=== PATIENT | female | born 1950 | race Caucasian/White ===

== ENCOUNTER 2019-05-30 11:41 | Inpatient (IN) | payer MEDICARE, BC ==
[~2019-05-30] VITALS: Ht 162.6 cm; Wt 79.4 kg
--- NOTE | 2019-05-30 11:52 | NUR ---
PT BIB SELF C/O SEND FROM PMD OFFICE FOR INFECTED R GREATER TOE, PT IS AAOX3, NOT IN RESPIRATORY DISTRESS, HOOKED TO MONITOR, KEPT RESTED AND COMFORTABLE, WILL CONTINUE TO MONITOR.
--- NOTE | 2019-05-30 12:12 | NUR ---
SEEN AND EXAMINED BY .
--- NOTE | 2019-05-30 12:22 | NUR ---
URINAL GIVEN UNABLE TO PROVIDE URINE SPECIMEN.
--- NOTE | 2019-05-30 12:26 | NUR ---
IV LINE ESTABLISHED, BLOOD DRAWNED AND SENT TO LAB.
[2019-05-30] MEDS ORDERED: IV NS 0.9% 1,000 ML BAG IV ONE (12:30)
[2019-05-30] MEDS ORDERED: PIPERACILLIN /TAZOBACTAM 3.375 G in IV D5W 50 ML IV ONE (12:30)
[2019-05-30] MEDS ORDERED: VANCOMYCIN 1 GM in IV D5W 250 ML IV ONE (12:30)
[2019-05-30 12:34] LABS: BASOPHILS # (AUTO) 0.2 /CMM (0.0-0.2); BASOPHILS % (AUTO) 1.3 % (0.0-2.0); EOSINOPHILS % (AUTO) 0.6 % (0.0-6.0); HEMATOCRIT 40 % (33-45); HEMOGLOBIN 13.5 g/dL (11.5-14.8); LYMPHOCYTES # (AUTO) 1.8 /CMM (0.8-4.8); LYMPHOCYTES % (AUTO) 15.5 % (20.0-44.0); MEAN CORPUSCULAR HGB CONC 34 g/dl (31.0-36.0); MEAN CORPUSCULAR VOLUME 88 fL (82-100); MONOCYTES # (AUTO) 0.9 /CMM (0.1-1.30); MONOCYTES % (AUTO) 7.4 % (2.0-12.0); NEUTROPHILS # (AUTO) 8.8 /CMM (1.8-8.9); NEUTROPHILS % (AUTO) 75.2 % (43.0-81.0); PLATELET COUNT (AUTO) 316 /CMM (150-450); RED BLOOD CELL COUNT(AUTO) 4.52 MIL/uL (4.0-5.2); WHITE BLOOD COUNT (AUTO) 11.7 K/uL (4.3-11.0)
--- NOTE | 2019-05-30 12:45 | NUR ---
ASSOCIATE PROPERTY MANAGER AT BEDSIDE FOR XRAY.
[2019-05-30 12:47] LABS: ALANINE AMINOTRANSFERASE 17 U/L (12-78); ALBUMIN 3.1 g/dL (3.4-5.0); ALKALINE PHOSPHATASE 103 U/L (46-116); ASPARTATE AMINOTRANSFERASE 11 U/L (15-37); BILIRUBIN,DIRECT 0.1 mg/dL (0.0-0.2); BILIRUBIN,TOTAL 0.5 mg/dL (0.2-1.0); CALCIUM, SERUM 9.4 mg/dL (8.5-10.1); CARBON DIOXIDE 26 mmol/L (21-32); CHLORIDE 96 mmol/L (98-107); CREATININE 1.5 mg/dL (0.6-1.3); POTASSIUM 4.6 mmol/L (3.5-5.1); SODIUM SERUM 132 mmol/L (136-145); TOTAL PROTEIN, SERUM 8.2 g/dL (6.4-8.2); UREA NITROGEN, BLOOD 25 mg/dL (7-18)
[2019-05-30 12:48] LABS: GLUCOSE 527 mg/dL (74-106)
[2019-05-30] MEDS ORDERED: EMPA10TA PO (12:51)
[2019-05-30] MEDS ORDERED: SITA1TAB6 PO (12:51)
[2019-05-30] MEDS ORDERED: CARV12.5 PO (12:51)
[2019-05-30] MEDS ORDERED: ATOR40TA PO (12:51)
--- NOTE | 2019-05-30 13:35 | NUR ---
URINE SPECIMEN COLLECTED AND SENT TO LAB.
[2019-05-30 13:43] LABS: APPEARANCE,URINE CLEAR (CLEAR); BILIRUBIN,URINE NEGATIVE (NEGATIVE); BLOOD, URINE TRACE Ery/uL (NEGATIVE); COLOR,URINE YELLOW (YELLOW); KETONES,URINE NEGATIVE (NEGATIVE); LEUKOCYTE ESTERASE ,URINE NEGATIVE (NEGATIVE); NITRITE, URINE NEGATIVE (NEGATIVE); PROTEIN,URINE 2+ mg/dl (NEGATIVE); UGLUCOSE 3+ mg/dL (NEGATIVE); UROBILINOGEN,URINE 0.2 EU/dL (0.2)
[2019-05-30 13:57] LABS: BACTERIA,URINE Few /HPF (None Seen); SQUAMOUS EPITHELIAL CELL,UR Rare /HPF (None Seen)
[2019-05-30 13:58] LABS: WBC,URINE 0-2 /HPF (0-3)
--- NOTE | 2019-05-30 13:59 | NUR ---
REPORT GIVEN TO ELISA PENA FOR [place].
[2019-05-30] MEDS ORDERED: ACETAMINOPHEN 325 MG TABLET PO PRN (15:00)
[2019-05-30] MEDS ORDERED: MAG HYDROX/AL HYDROX/SIMETH 30 ML UDC PO PRN (15:00)
[2019-05-30] MEDS ORDERED: METFORMIN 850 MG TABLET PO SCH (15:00)
[2019-05-30] MEDS ORDERED: Z GUARD REMEDY 2 OZ OINT TP PRN (15:00)
[2019-05-30] MEDS ORDERED: DEXTROSE 50%-WATER 50 ML DISP.SYRIN IV PRN (15:00)
[2019-05-30] MEDS ORDERED: HYDROCODONE/APAP 5/325MG 1 EACH TABLET PO PRN (15:00)
[2019-05-30] MEDS ORDERED: ZOLPIDEM TARTRATE 5 MG TABLET PO PRN (15:00)
[2019-05-30] MEDS ORDERED: MAGNESIUM HYDROXIDE 30 ML UDC PO PRN (15:00)
[2019-05-30] MEDS ORDERED: ONDANSETRON HCL/PF 4 MG/2 ML VIAL IVP PRN (15:00)
--- NOTE | 2019-05-30 15:10 | NUR ---
RN MS NOTES RECEIVED PT FROM E.R. STAFF VIA JOAN, PT IS ALERT AND ORIENTED, ASSISTED TO BED, MADE COMFORTABLE, ROOM SET UP ORIENTATION PROVIDED, VERBALIZED UNDERSTANDING, NO COMPLAINT OF PAIN, RESPIRATIONS NORMAL, LUNG SOUNDS CLEAR, ABLE TO AMBULATE WITH ASSISTANCE, NEEDS ATTENDED.
[2019-05-30 16:00] VITALS: BP 161/84
[2019-05-30] MEDS: CARVEDILOL 12.5 MG TABLET PO SCH ×2 (17:00→17:18)
[2019-05-30] MEDS: METFORMIN 500 MG TABLET PO SCH (17:17)
[2019-05-30] MEDS: ENOXAPARIN SODIUM 40 MG/0.4 ML DISP.SYRIN SQ SCH (17:30)
[2019-05-30] MEDS: IV NS 0.9% 1,000 ML IV PRN (18:08)
[2019-05-30] MEDS: PIPERACILLIN /TAZOBACTAM 4.5 G in IV D5W 50 ML IV SCH ×2 (18:09→23:51)
[2019-05-30] MEDS: INSULIN REGULAR, HUMAN 100 UNIT/ML 3 ML VIAL SQ PRN (18:10)
[2019-05-30] MEDS: BLOOD SUGAR DIAGNOSTIC 1 EACH STRIP VI SCH ×2 (18:11→21:31)
--- NOTE | 2019-05-30 18:41 | NUR ---
RN MS NOTES PT IN BED, AWAKE, ALERT AND ORIENTED, WATCHING TV AND EATING DINNER, PM MEDS GIVEN ORDERED, PLAN OF CARE DISCUSSED WITH PT, VERBALIZED UNDERSTANDING, ALL NEEDS ATTENDED.
--- NOTE | 2019-05-30 19:20 | NUR ---
MS/RN NOTES RECEIVED PT. LYING IN BED. PT. IS AWAKE, ALERT AND ORIENTED X4. BREATHING EVEN AND UNLABORED ON ROOM AIR. NO SOB, RESPIRATORY DISTRESS OR COMPLAINTS OF PAIN NOTED AT THIS TIME. PT. 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 PT. WITH RIGHT AC 18 GAUGE PERIPHERAL IV PRESENT, PATENT AND INTACT ADMINISTERING TO PT. NS @ 75 ML/HR. EDUCATED PT. ON CALLING FOR ASSISTANCE BEFORE AMBULATING, PT. VERBALIZED UNDERSTANDING. BED LOCKED AND IN LOWEST POSITION, SIDE RAILS UP X3, BED ALARM ON, CALL LIGHT WITHIN REACH, WILL CONTINUE TO MONITOR.
[2019-05-30 19:37] VITALS: BP 129/60
[2019-05-30 20:00] VITALS: BP 129/60
[2019-05-30] MEDS: ATORVASTATIN 40 MG TABLET PO SCH (21:31)
[2019-05-30] MEDS: *INSULIN REGULAR(HUMULIN R)HUM 100 UNIT/ML VIAL SQ PRN (21:32)
[2019-05-31] MEDS: PIPERACILLIN /TAZOBACTAM 4.5 G in IV D5W 50 ML IV SCH ×3 (06:17→17:14)
--- NOTE | 2019-05-31 06:30 | NUR ---
MS/RN NOTES PT. IS LYING IN BED RESTING. BREATHING EVEN AND UNLABORED ON ROOM AIR. NO SOB, RESPIRATORY DISTRESS OR COMPLAINTS OF PAIN NOTED AT THIS TIME. PT. WITH LEFT AC 20 GAUGE PERIPHERAL IV PRESENT, PATENT AND INTACT ADMINISTERING TO PT. NS @ 75 ML/HR. SAFETY PRECAUTIONS IMPLEMENTED AND IN PLACE. ALL PT. NEEDS MET. BED LOCKED AND IN LOWEST POSITION, SIDE RAILS UP X3, BED ALARM ON, CALL LIGHT WITHIN REACH, WILL ENDORSE TO DAYSHIFT NURSE FOR CONTINUITY OF CARE.
[2019-05-31 06:41] LABS: BASOPHILS # (AUTO) 0.1 /CMM (0.0-0.2); BASOPHILS % (AUTO) 0.5 % (0.0-2.0); EOSINOPHILS % (AUTO) 1.9 % (0.0-6.0); HEMATOCRIT 33 % (33-45); HEMOGLOBIN 11.5 g/dL (11.5-14.8); LYMPHOCYTES # (AUTO) 2.4 /CMM (0.8-4.8); LYMPHOCYTES % (AUTO) 22.5 % (20.0-44.0); MEAN CORPUSCULAR HGB CONC 35 g/dl (31.0-36.0); MEAN CORPUSCULAR VOLUME 86 fL (82-100); MONOCYTES % (AUTO) 9.5 % (2.0-12.0); NEUTROPHILS # (AUTO) 7.1 /CMM (1.8-8.9); NEUTROPHILS % (AUTO) 65.6 % (43.0-81.0); PLATELET COUNT (AUTO) 285 /CMM (150-450); RED BLOOD CELL COUNT(AUTO) 3.86 MIL/uL (4.0-5.2); WHITE BLOOD COUNT (AUTO) 10.8 K/uL (4.3-11.0)
[2019-05-31 06:48] LABS: CALCIUM, SERUM 8.9 mg/dL (8.5-10.1); CREATININE 1.5 mg/dL (0.6-1.3); MAGNESIUM 1.9 mg/dL (1.8-2.4); PHOSPHORUS 3.8 mg/dL (2.5-4.9); POTASSIUM 4.4 mmol/L (3.5-5.1)
[2019-05-31] MEDS: BLOOD SUGAR DIAGNOSTIC 1 EACH STRIP VI SCH ×4 (06:50→22:18)
[2019-05-31] MEDS: INSULIN REGULAR, HUMAN 100 UNIT/ML 3 ML VIAL SQ PRN ×3 (06:53→17:01)
[2019-05-31 07:03] LABS: THYROID STIMULATING HORMONE 0.989 uIU/mL (0.358-3.74)
--- NOTE | 2019-05-31 07:11 | NUR ---
MS RN OPENING NOTES RECEIVED PT AWAKE IN BED IN NO ACUTE SIGNS OF DISTRESS. A/O X4. ABLE TO MAKE NEEDS KNOWN, DENIES PAIN OR ANY DISCOMFORTS AT THIS TIME. ON ROOM AIR, BREATHING EVEN AND UNLABORED PT. 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 IV ACCESS ON LAC G #20 PATENT AND INTACT, IVF OF NS @ 75 ML/HR INFUSING, NO S/S OF INFILTRATIONS NOTED. ADVISED PT. TO CALL FOR ASSISTANCE BEFORE AMBULATING, PT. VERBALIZED UNDERSTANDING. BED LOCKED AND IN LOWEST POSITION, SIDE RAILS UP X3, BED ALARM ON, CALL LIGHT WITHIN REACH. WILL CONTINUE TO MONITOR.
[2019-05-31 08:00] VITALS: BP 128/68
[2019-05-31] MEDS: METFORMIN 500 MG TABLET PO SCH ×2 (08:05→16:36)
[2019-05-31] MEDS: CARVEDILOL 12.5 MG TABLET PO SCH ×2 (08:05→16:35)
--- NOTE | 2019-05-31 09:01 | NUR ---
WOUND CARE CONSULT: PT PRESENTS WITH LEFT GREAT TOE CRUSTED WOUND WITH ODOR, SWELLING AND REDNESS TO TOE, PRESENT ON ADMISSION. NO DRAINAGE NOTED. PT IS AMBULATORY AND CONTINENT. DR SIMPSON AWARE OF DPM CONSULT REQUEST. WILL SEE PRN. FRAZIER IN AGREEMENT WITH PLAN OF CARE.
[2019-05-31] MEDS ORDERED: LIDOCAINE 1% INJ 50 ML MDV IJ STA (10:40)
--- NOTE | 2019-05-31 10:45 | NUR ---
RN NOTES PATIENT SEEN AND EVALUATED BY DR SIMPSON WITH ORDER TO OBTAINED CONSENT FOR LEFT FOOT WOUND DEBRIDEMENT. PROCEDURE EXPLAINED BY DR SIMPSON AND PT VERBALIZED UNDERSTANDING. CONSENT SIGNED.
--- NOTE | 2019-05-31 11:32 | NUR ---
RN NOTES LEFT BIG TOE WOUND DEBRIDEMENT DONE BY DR SIMPSON. WOUND SPECIMEN COLLECTED FOR WOUND CULTURE. PHOTOS TAKEN AFTER PROCEDURE AND FILED ON CHART. LEFT FOOT COVERED WITH DRY DRESSING AND WRAPPED WITH JESUS BANDAGE. NO BLEEDING NOTED. MRI OF LEFT FOOT AND WEIGHT BEARING OF LEFT HEEL WBAT ONLY FOR TRANSFER ORDERED BY DR SIMPSON. WILL CONTINUE TO MONITOR.
--- NOTE | 2019-05-31 13:38 | NUR ---
RN NOTES CALLED FIRST LINE PRODUCTION SUPERVISOR IF HE WILL DO MRI OF LEFT FOOT TODAY AND SAID "YES" AND WILL DO IT LATER TODAY.
[2019-05-31] MEDS: IV NS 0.9% 1,000 ML IV PRN (14:56)
[2019-05-31] MEDS: ENOXAPARIN SODIUM 40 MG/0.4 ML DISP.SYRIN SQ SCH (14:57)
--- NOTE | 2019-05-31 15:24 | NUR ---
RN NOTES MRI TRANSPORT STAFF CAME TO PICK-UP PT FOR MRI BUT PT REFUSED TO HAVE IT DONE TODAY. NUCLEAR SPECTROSCOPIST GAY MADE AWARE AND WILL DO MRI OF LEFT FOOT TOMORROW. WILL ENDORSE.
[2019-05-31 16:00] VITALS: BP 138/72
[2019-05-31] MEDS: glipiZIDE 5 MG TABLET PO SCH (16:17)
[2019-05-31] MEDS: LACTOBACILLUS RHAMNOSUS GG 1 EACH CAP.SPRINK PO SCH (16:35)
--- NOTE | 2019-05-31 18:39 | NUR ---
MS RN CLOSING NOTES PT AWAKE AND RESTING IN BED AT MODERATE HIGH BACKREST POSITION. A/O X4. ABLE TO MAKE NEEDS KNOWN. ON ROOM AIR, TOLERATING WELL WITH NO SOB NOTED ALL THROUGHOUT THE DAY. PATIENT WITH LEFT EYE TOTAL BLINDNESS AND RIGHT EYE PARTIAL BLINDNESS. IV ACCESS ON LAC G #20 PATENT AND INTACT, IVF OF NS @ 75 ML/HR INFUSING WELL, NO S/S OF INFILTRATIONS NOTED. ADVISED PT. TO CALL FOR ASSISTANCE WHEN GETTING OUT OF BED, PT VERBALIZED UNDERSTANDING. ALL NEEDS AND CARE ATTENDED WELL. SAFETY MEASURES KEPT IN PLACE. BED LOCKED AND IN LOWEST POSITION WITH SIDE RAILS UP X3. BED ALARM ON AND CALL LIGHT WITHIN REACH. WILL ENDORSE TO BAR USEFUL OR BUSSER NURSE FOR [place].
--- NOTE | 2019-05-31 19:20 | NUR ---
MS/RN NOTES RECEIVED PT. SITTING UP IN BED. PT. IS AWAKE, ALERT AND ORIENTED X4. BREATHING EVEN AND UNLABORED ON ROOM AIR. NO SOB, RESPIRATORY DISTRESS OR COMPLAINTS OF PAIN NOTED AT THIS TIME. PT. 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 PT. WITH LEFT AC 20 GAUGE PERIPHERAL IV PRESENT, PATENT AND INTACT ADMINISTERING TO PT. NS @ 75 ML/HR. PT. IS STATUS POST LEFT GREAT TOE DEBRIDEMENT TODAY WITH DR. PARKS. POST OP DRESSING PRESENT, CLEAN, DRY AND INTACT. EDUCATED PT. ON CALLING FOR ASSISTANCE BEFORE AMBULATING, PT. VERBALIZED UNDERSTANDING. BED LOCKED AND IN LOWEST POSITION, SIDE RAILS UP X3, BED ALARM ON, CALL LIGHT WITHIN REACH, WILL CONTINUE TO MONITOR.
[2019-05-31 20:00] VITALS: BP 135/75
[2019-05-31] MEDS: INSULIN GLARGINE, 100 UNIT/ML CARTRIDGE SQ SCH (22:00)
[2019-05-31] MEDS: ATORVASTATIN 40 MG TABLET PO SCH (22:11)
[2019-06-01] MEDS: PIPERACILLIN /TAZOBACTAM 4.5 G in IV D5W 50 ML IV SCH ×3 (00:09→11:49)
--- NOTE | 2019-06-01 06:55 | NUR ---
MS/RN NOTES PT. IS LYING IN BED, AWAKE, ALERT AND ORIENTED X4. BREATHING EVEN AND UNLABORED ON ROOM AIR. NO SOB, RESPIRATORY DISTRESS OR COMPLAINTS OF PAIN NOTED AT THIS TIME. PT. 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 PT. WITH LEFT AC 20 GAUGE PERIPHERAL IV PRESENT, PATENT AND INTACT ADMINISTERING TO PT. NS @ 75 ML/HR. PT. WITH LEFT GREAT TOE POST OP DRESSING PRESENT, CLEAN, DRY AND INTACT. ALL PT. NEEDS MET. BED LOCKED AND IN LOWEST POSITION, SIDE RAILS UP X3, BED ALARM ON, CALL LIGHT WITHIN REACH, WILL ENDORSE TO DAYSHIFT NURSE FOR CONTINUITY OF CARE.
[2019-06-01 06:57] LABS: CALCIUM, SERUM 9.2 mg/dL (8.5-10.1); CREATININE 1.7 mg/dL (0.6-1.3); POTASSIUM 4.4 mmol/L (3.5-5.1)
[2019-06-01] MEDS: BLOOD SUGAR DIAGNOSTIC 1 EACH STRIP VI SCH ×4 (07:15→21:52)
[2019-06-01] MEDS: INSULIN REGULAR, HUMAN 100 UNIT/ML 3 ML VIAL SQ PRN ×3 (07:17→17:36)
--- NOTE | 2019-06-01 07:20 | NUR ---
MS/RN NOTE THE PATIENT IS RECEIVED IN BED. ALERT AND ORIENTED X4. IN ROOM AIR AND DENIES SOB. RESPIRATION REGULAR AND UNLABORED. DENIES PAIN. THE PATIENT IN NO APPARENT DISTRESS. LAC G 20 PATENT AND NORMAL SALINE INFUSING AT 75ML/HR AND NO S/S INFILTRATION NOTED. BED LOW AND LOCKED. SIDE RAILS UP X3. CALL LIGHT WITHIN REACH. WILL CONTINUE TO MONITOR.
[2019-06-01 08:00] VITALS: BP 151/75
[2019-06-01] MEDS: CARVEDILOL 12.5 MG TABLET PO SCH ×2 (08:17→16:20)
[2019-06-01] MEDS: METFORMIN 500 MG TABLET PO SCH ×2 (08:18→17:36)
[2019-06-01] MEDS: glipiZIDE 5 MG TABLET PO SCH ×2 (08:18→16:19)
[2019-06-01] MEDS: LACTOBACILLUS RHAMNOSUS GG 1 EACH CAP.SPRINK PO SCH ×2 (08:26→16:23)
[2019-06-01] MEDS: NEOMY SULF/BACITRAC ZN/POLY 15 GM TUBE TP SCH (08:27)
[2019-06-01 16:00] VITALS: BP 138/72
[2019-06-01] MEDS: ENOXAPARIN SODIUM 40 MG/0.4 ML DISP.SYRIN SQ SCH (16:01)
[2019-06-01] MEDS ORDERED: FEE PK DOSING 1 MIN EA MC ONE (17:59)
--- NOTE | 2019-06-01 18:15 | NUR ---
MS/RN NOTE THE PATIENT ALERT AND ORIENTED X4. IN ROOM AIR AND SATURATION IS AT 97%. DENIES SOB. RESPIRATION REGULAR AND UNLABORED. DENIES PAIN. THE PATIENT IN NO APPARENT DISTRESS. PRIVATE CAREGIVER AT THE BEDSIDE. LAC G 20 PATENT AND NORMAL SALINE INFUSING AT 75ML/HR AND NO S/S INFILTRATION NOTED. BED LOW AND LOCKED. SIDE RAILS UP X3. CALL LIGHT WITHIN REACH. WILL ENDORSE TO PROJECT MANAGEMENT.
--- NOTE | 2019-06-01 19:08 | NUR ---
MS/RN NOTES RECEIVED PT. LYING IN BED. PT. IS AWAKE, ALERT AND ORIENTED X4. BREATHING EVEN AND UNLABORED ON ROOM AIR. NO SOB, RESPIRATORY DISTRESS OR COMPLAINTS OF PAIN NOTED AT THIS TIME. PT. 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 PT. WITH LEFT AC 20 GAUGE PERIPHERAL IV PRESENT, PATENT AND INTACT ADMINISTERING TO PT. NS @ 75 ML/HR. PT. WITH LEFT GREAT TOE DRESSING PRESENT, CLEAN, DRY AND INTACT. EDUCATED PT. ON CALLING FOR ASSISTANCE BEFORE AMBULATING, PT. VERBALIZED UNDERSTANDING. BED LOCKED AND IN LOWEST POSITION, SIDE RAILS UP X3, BED ALARM ON, CALL LIGHT WITHIN REACH, WILL CONTINUE TO MONITOR.
[2019-06-01 20:00] VITALS: BP 145/74
[2019-06-01] MEDS: VANCOMYCIN 1 GM in IV D5W 250 ML IV SCH (20:32)
[2019-06-01] MEDS: IV NS 0.9% 1,000 ML IV PRN (20:32)
[2019-06-01] MEDS: ATORVASTATIN 40 MG TABLET PO SCH (21:43)
[2019-06-01] MEDS: CEFTRIAXONE 1 G in IV D5W 50 ML IV SCH (21:43)
[2019-06-01] MEDS: INSULIN GLARGINE, 100 UNIT/ML CARTRIDGE SQ SCH (21:53)
[2019-06-02 06:33] LABS: CALCIUM, SERUM 9.3 mg/dL (8.5-10.1); CREATININE 1.4 mg/dL (0.6-1.3); POTASSIUM 4.2 mmol/L (3.5-5.1)
[2019-06-02] MEDS: BLOOD SUGAR DIAGNOSTIC 1 EACH STRIP VI SCH ×4 (06:45→21:11)
[2019-06-02] MEDS: INSULIN REGULAR, HUMAN 100 UNIT/ML 3 ML VIAL SQ PRN ×3 (06:46→16:54)
--- NOTE | 2019-06-02 07:26 | NUR ---
MS/RN NOTES PT. IS LYING IN BED. PT. IS AWAKE, ALERT AND ORIENTED X4. BREATHING EVEN AND UNLABORED ON ROOM AIR. NO SOB, RESPIRATORY DISTRESS OR COMPLAINTS OF PAIN NOTED AT THIS TIME. PT. WITH LEFT AC 20 GAUGE PERIPHERAL IV PRESENT, PATENT AND INTACT ADMINISTERING TO PT. NS @ 75 ML/HR. PT. WITH LEFT GREAT TOE DRESSING PRESENT, CLEAN, DRY AND INTACT. ALL PT. NEEDS MET. BED LOCKED AND IN LOWEST POSITION, SIDE RAILS UP X3, BED ALARM ON, CALL LIGHT WITHIN REACH, WILL ENDORSE TO DAYSHIFT NURSE FOR CONTINUITY OF CARE.
--- NOTE | 2019-06-02 07:50 | NUR ---
RN OPENING NOTES PT AWAKE AND RESTING IN BED. NO COMPLAINTS OF PAIN, SOB OR DISTRESS AT THIS TIME. PT HAS A LEFT AC #20 IV RUNNING NS @20 ML/HR. SAFETY PRECAUTIONS IN PLACE, BED IN LOWEST LOCKED POSITION, X2 SIDE RAILS UP AND CALL LIGHT WITHIN REACH. WILL CONTINUE TO MONITOR.
[2019-06-02 08:00] VITALS: BP 168/100
[2019-06-02] MEDS: LACTOBACILLUS RHAMNOSUS GG 1 EACH CAP.SPRINK PO SCH ×2 (08:28→16:33)
[2019-06-02] MEDS: glipiZIDE 5 MG TABLET PO SCH ×2 (08:28→16:33)
[2019-06-02] MEDS: CARVEDILOL 12.5 MG TABLET PO SCH ×2 (08:29→16:34)
[2019-06-02] MEDS: METFORMIN 500 MG TABLET PO SCH ×2 (08:29→16:33)
[2019-06-02] MEDS: NEOMY SULF/BACITRAC ZN/POLY 15 GM TUBE TP SCH (08:31)
--- NOTE | 2019-06-02 11:20 | NUR ---
RN NOTES ACCIDENTLY REJECTED 233 BLOOD SUGAR CHECK. WILL COVER PER PROTOCOL.
[2019-06-02] MEDS: VANCOMYCIN 1 GM in IV D5W 250 ML IV SCH (14:29)
[2019-06-02] MEDS: ENOXAPARIN SODIUM 40 MG/0.4 ML DISP.SYRIN SQ SCH (14:29)
[2019-06-02 16:00] VITALS: BP 172/88
--- NOTE | 2019-06-02 18:31 | NUR ---
RN CLOSING NOTES PT AWAKE AND RESTING IN BED. DAUGHTER AND CAREGIVER AT BEDSIDE. PT TRANSFERRED FROM ROOM 207-2. ALL PT BELONGINGS BROUGHT WITH PATIENT DURING TRANSFER. NO COMPLAINTS OF PAIN, SOB OR DISTRESS DURING SHIFT. PT HAS A LEFT AC #20 IV RUNNING NS @75 ML/HR. WOUND CARE CARRIED OUT ORDERED. SAFETY PRECAUTIONS IN PLACE, BED IN LOWEST LOCKED POSITION, X2 SIDE RAILS UP AND CALL LIGHT WITHIN REACH. WILL ENDORSE TO LANCE CREWMEMBER/MLRS SERGEANT NURSE FOR CONTINUITY OF CARE.
--- NOTE | 2019-06-02 19:00 | NUR ---
MS RN OPENING NOTES Received patient in bed with daughter and caregiver at bedside. Breathing even and unlabored. Not in any distress, on room air. Patient has a SHELBIE PICC line with IVF running at 75mL/hr. No complaints at this time. Safety measures in place; call light within reach, bed in low, locked position. Will continue to monitor accordingly.
[2019-06-02 20:00] VITALS: BP 153/76
[2019-06-02] MEDS: CEFTRIAXONE 1 G in IV D5W 50 ML IV SCH (21:03)
[2019-06-02] MEDS: ATORVASTATIN 40 MG TABLET PO SCH (21:03)
[2019-06-02] MEDS: INSULIN GLARGINE, 100 UNIT/ML CARTRIDGE SQ SCH (21:13)
--- NOTE | 2019-06-02 21:15 | NUR ---
RN NOTES BSL- 193mg/dL. Patient refused the Humulin R. Lantus 10units given. Snacks provided
[2019-06-02] MEDS: *INSULIN REGULAR(HUMULIN R)HUM 100 UNIT/ML VIAL SQ PRN (21:20)
[2019-06-03] MEDS: IV NS 0.9% 1,000 ML IV PRN ×2 (03:03→19:45)
[2019-06-03] MEDS: INSULIN REGULAR, HUMAN 100 UNIT/ML 3 ML VIAL SQ PRN ×3 (06:32→17:35)
[2019-06-03] MEDS: BLOOD SUGAR DIAGNOSTIC 1 EACH STRIP VI SCH ×4 (06:37→20:23)
--- NOTE | 2019-06-03 06:54 | NUR ---
MS RN CLOSING NOTES Patient sitting up in bed, alert, oriented x 4. Breathing even and unlabored. Not in any distress, on room air. IV fluids infusing at 75mL/hr. No complaints at this time. [id number] mg/dL. 3 units insulin given per sliding scale. No acute changes overnight. Safety measures in place; call light within reach, bed in low, locked position. Will endorse A[place] to oncoming RN
[2019-06-03 06:58] LABS: CREATININE 1.4 mg/dL (0.6-1.3); POTASSIUM 3.9 mmol/L (3.5-5.1)
--- NOTE | 2019-06-03 07:05 | NUR ---
MS RN NOTES PATIENT IN BED, ALERT ORIENTED X 4. NO ACUTE DISTRESS NOTED, BREATHING UNLABORED, NO SOB NOTED. IV ACCESS PATENT AND INTACT, NO REDNESS OR SWELLING NOTED. CALL LIGHT WITHIN REACH. SAFETY MEASURES IN PLACE. WILL CONTINUE TO MONITOR ACCORDINGLY.
[2019-06-03] MEDS: VANCOMYCIN 1 GM in IV D5W 250 ML IV SCH (07:51)
[2019-06-03] MEDS: glipiZIDE 5 MG TABLET PO SCH ×2 (07:51→16:45)
[2019-06-03] MEDS: CARVEDILOL 12.5 MG TABLET PO SCH ×2 (08:25→16:46)
[2019-06-03] MEDS: METFORMIN 500 MG TABLET PO SCH ×2 (08:25→17:30)
[2019-06-03] MEDS: LACTOBACILLUS RHAMNOSUS GG 1 EACH CAP.SPRINK PO SCH ×2 (08:25→16:45)
[2019-06-03] MEDS: NEOMY SULF/BACITRAC ZN/POLY 15 GM TUBE TP SCH (08:27)
[2019-06-03 08:42] VITALS: BP 169/79
[2019-06-03] MEDS ORDERED: GLIP5TAB13 PO (11:28)
[2019-06-03] MEDS ORDERED: Insulin Glargine,Hum SQ (11:28)
[2019-06-03] MEDS: ENOXAPARIN SODIUM 40 MG/0.4 ML DISP.SYRIN SQ SCH (15:29)
[2019-06-03 15:57] VITALS: BP 166/72
--- NOTE | 2019-06-03 19:00 | NUR ---
MS RN NOTES PATIENT IN BED, ALERT ORIENTED X 4. NO ACUTE DISTRESS NOTED, BREATHING UNLABORED, NO SOB NOTED. IV ACCESS PATENT AND INTACT, NO REDNESS OR SWELLING NOTED.DUE MEDICATIONS GIVEN, NO ASE NOTED.NEEDS ATTENDED AND ANTICIPATED. KEPT CLEAN DRY AND COMFORTABLE. CALL LIGHT WITHIN REACH. SAFETY MEASURES IN PLACE. WILL ENDORSE TO NIGHT NURSE FOR CONTINUITY OF CARE.
[2019-06-03] MEDS: CEFTRIAXONE 1 G in IV D5W 50 ML IV SCH (19:45)
--- NOTE | 2019-06-03 19:58 | NUR ---
MS/RN OPENING NOTES RECEIVED PATIENT IN BED, AWAKE, ALERT X3 ABLE TO VERBALIZE NEEDS, WEB SERVICES MANAGER VERENA AT BEDSIDE DISCUSSING PLAN OF CARE AND DISCHARGE TRANSITIONAL CARE, REPORTED DISCHARGE TONIGHT THE THIRD DAY. PATIENT FAMILY INFORMED AND MADE AWARE THAT PATIENT HOME HEALTH WAS SET UP ALREADY WITH IV INFUSION, DISCHARGE PLANNING WAS REPORTED BUT FINALIZED ONLY TONIGHT. IV ANTIBIOTIC RUNNING,WIIL MONITOR. PATIENT REQUEST IF BG AM IS POSSIBLE.WILL MONITOR.AND FOLLOW UP.
[2019-06-03 20:00] VITALS: BP 171/96
[2019-06-03] MEDS: ATORVASTATIN 40 MG TABLET PO SCH (20:17)
[2019-06-03] MEDS: INSULIN GLARGINE, 100 UNIT/ML CARTRIDGE SQ SCH (20:28)
--- NOTE | 2019-06-03 20:30 | NUR ---
MS/RN NOTES PATIENT BLOOD SUGAR AT 138, REFUSE TO HAVE SLIDING SCALE REPLACEMENT REGULAR INSULIN BUT ALLOWED FOR THE LONG ACTING, PROVIDED SNACKKS.
--- NOTE | 2019-06-03 20:43 | NUR ---
MS/RN NOTES PATIENT WITH ELEVATED BLOOD PRESSURE OF 195/96 RE CHECKED AFTER AN HOUR DUE TO SBP TAKEN EARLIER ALSO ELEVATED 171/96. PATIENT RECEIVED A DISCHARGE ORDER TONIGHT AND WILL BE SEND WITH A HOME HEALTH FOR IV ANTIBIOTIC THERAPY. PATIENT IS CONCERNED AND MD TO CONTACT, LEFT MESSAGE AWAITING FOR CALL BACK/ PATIENT IS ALSO CONCERN TO FOLLOW UP WITH DR WEBBER REGARDING WOUND F/U.
[2019-06-03 20:45] VITALS: BP 195/96
[2019-06-03] MEDS ORDERED: CLONIDINE HCL 0.1 MG TABLET PO STA (20:57)
--- NOTE | 2019-06-03 21:00 | NUR ---
md angel contacted and ordered for clonidine 0.2 mg po stat once and recheck blood pressure in an hour.
--- NOTE | 2019-06-03 21:00 | NUR ---
MS/RN NOTES PER MD TO MONITOR B/P AND CRIME SCENE TECHNICIAN WAS MADE AWARE FOR ELEVATED BLOOD PRESSURE, TO HOLD DISCHARGE TILL TOMORROW UNTIL PATIENT BLOOD PRESSURE IS IMPROVED.
[2019-06-03 22:00] VITALS: BP 157/80
[2019-06-03 22:12] VITALS: BP 157/80
--- NOTE | 2019-06-03 22:13 | NUR ---
MS/RN NOTES BLOOD PRESSURE RECHECK 157/80, PATIENT REPORTED MORE CALM AND RELAX.
[2019-06-04] MEDS: VANCOMYCIN 1 GM in IV D5W 250 ML IV SCH (01:11)
[2019-06-04] MEDS: BLOOD SUGAR DIAGNOSTIC 1 EACH STRIP VI SCH ×2 (06:23→11:44)
--- NOTE | 2019-06-04 06:49 | NUR ---
319-1 MS/RN NOTES PATIENT ABLE TO SLEEP DURING THE NIGHT, MONITORED FOR ANY CHANGES, KEPT COMFORTABLE, IV FLUIDS RUNNING AT 5 ML/HT, ADMINISTERED IV ANTIBIOTIC THERAPY. BED LOCKED, CALL LIGHTS WITHN REACH. WILL ENDORSE TO AM RN FOR [place].
[2019-06-04 06:59] LABS: CALCIUM, SERUM 8.7 mg/dL (8.5-10.1); CREATININE 1.2 mg/dL (0.6-1.3); POTASSIUM 3.7 mmol/L (3.5-5.1)
[2019-06-04] MEDS: glipiZIDE 5 MG TABLET PO SCH (07:47)
--- NOTE | 2019-06-04 08:00 | NUR ---
MS RN OPENING NOTES Received Patient awake and resting in bed. A/O x 4. VS stable with no acute distress. Breathing even and unlabored on room air with no respiratory distress. Denies pain. DOUBLE LUMEN PICC LINE on SHELBIE clean, dry, intact and flushing well. Dressings clean, dry, and intact. Safety precautions in place. Bed locked and set to lowest position with side rails x 2 up. Call light within reach. All needs rendered at this time. Will continue to monitor.
[2019-06-04 08:44] VITALS: BP 147/78
[2019-06-04 10:14] VITALS: BP 147/78
[2019-06-04] MEDS: NEOMY SULF/BACITRAC ZN/POLY 15 GM TUBE TP SCH (10:14)
[2019-06-04] MEDS: METFORMIN 500 MG TABLET PO SCH (10:14)
[2019-06-04] MEDS: LACTOBACILLUS RHAMNOSUS GG 1 EACH CAP.SPRINK PO SCH (10:14)
[2019-06-04] MEDS: CARVEDILOL 12.5 MG TABLET PO SCH (10:14)
[2019-06-04] MEDS: INSULIN REGULAR, HUMAN 100 UNIT/ML 3 ML VIAL SQ PRN (12:20)
--- NOTE | 2019-06-04 12:47 | NUR ---
MS ELECTRICAL MAINTENANCE SUPERVISOR NOTES Patient discharged for home at this time. Patient in stable condition. VS stable with no acute distress. Breathing even and unlabored on room air with no respiratory distress. Denies pain. Skin assessment done per protocol. Patient ambulatory with assist. Medication reconciliation and discharge orders reviewed and explained to Patient and Caregiver. Patient and Caregiver verbalized understanding. All belongings with Patient. Patient will follow up with Electronics Specialist tomorrow. Escorted Patient via wheelchair to the [facility] for safety. Patient picked up by Kimberly (Caregiver).
== END 2019-06-04 12:38 | disposition home health service (06) | DRG 570 ==
LOC: ER 11:47 → MEDSG2 14:49 → MED 06-02 17:58
PROC: 0JBR0ZZ Excision of Left Foot Subcutaneous Tissue and Fascia, Open Approach (ICD-10-PCS; principal; 2019-05-31)
PROC: 0HTRXZZ Resection of Toe Nail, External Approach (ICD-10-PCS; 2019-05-31)
PROC: 02HV33Z Insertion of Infusion Device into Superior Vena Cava, Percutaneous Approach (ICD-10-PCS; 2019-06-02)
PROC: B548ZZA Ultrasonography of Superior Vena Cava, Guidance (ICD-10-PCS; 2019-06-02)
DX: L03.116 Cellulitis of left lower limb (principal); N17.0 Acute kidney failure with tubular necrosis; E87.1 Hypo-osmolality and hyponatremia; M86.8X7 Other osteomyelitis, ankle and foot; L97.528 Non-pressure chronic ulcer of other part of left foot with other specified severity; E11.69 Type 2 diabetes mellitus with other specified complication; E11.621 Type 2 diabetes mellitus with foot ulcer; E11.65 Type 2 diabetes mellitus with hyperglycemia; E87.6 Hypokalemia; E86.9 Volume depletion, unspecified; E11.42 Type 2 diabetes mellitus with diabetic polyneuropathy; E78.5 Hyperlipidemia, unspecified; N18.9 Chronic kidney disease, unspecified; I12.9 Hypertensive chronic kidney disease with stage 1 through stage 4 chronic kidney disease, or unspecified chronic kidney disease; Z79.4 Long term (current) use of insulin; L60.3 Nail dystrophy; Z79.84 Long term (current) use of oral hypoglycemic drugs; E11.22 Type 2 diabetes mellitus with diabetic chronic kidney disease
CPT/HCPCS: 36415; 36569; 71045-TC; 73718-TC; 80048-TC; 80061-TC; 80076-TC; 80202-TC; 81000-TC; 82962-TC; 83605-TC; 83735-TC; 84100-TC; 84443-TC; 84484-TC; 85025-TC; 85652-TC; 85730-TC; 87040-TC; 87070-TC; 87081-TC; 87186-TC; 97116-TC; 97530-TC; A6403; G0378; J0696; J1650; J1815; J2543; J3370; J3490; J7030; J7060

== ENCOUNTER 2019-06-05 11:20 | Outpatient (CLI) | payer MEDICARE, BC ==
[~2019-06-05 11:20] MED LIST: ATOR40TA PO; CARV12.5 PO; EMPA10TA PO; GLIP5TAB13 PO; Insulin Glargine,Hum SQ; SITA1TAB6 PO
== END 2019-06-05 23:59 | disposition home or self-care (01) ==
LOC: WOU 11:20
PROVIDERS: ATTEND Podiatrist Foot & Ankle Surgery
DX: E11.621 Type 2 diabetes mellitus with foot ulcer (principal); L97.523 Non-pressure chronic ulcer of other part of left foot with necrosis of muscle; E11.42 Type 2 diabetes mellitus with diabetic polyneuropathy; H54.8 Legal blindness, as defined in USA; I10 Essential (primary) hypertension
CPT/HCPCS: 11043

== ENCOUNTER 2019-06-12 10:45 | Outpatient (CLI) | payer MEDICARE, BC | END 2019-06-12 23:59 | disposition home health service (06) | LOC: WOU 10:45 | PROVIDERS: ATTEND Podiatrist Foot & Ankle Surgery | DX: E11.621 Type 2 diabetes mellitus with foot ulcer (principal); L97.522 Non-pressure chronic ulcer of other part of left foot with fat layer exposed; E11.42 Type 2 diabetes mellitus with diabetic polyneuropathy; H54.8 Legal blindness, as defined in USA; I10 Essential (primary) hypertension | CPT/HCPCS: 11042 ==

== ENCOUNTER 2019-06-19 10:40 | Outpatient (CLI) | payer MEDICARE, BC | END 2019-06-19 23:59 | disposition home or self-care (01) | LOC: WOU 10:40 | PROVIDERS: ATTEND Podiatrist Foot & Ankle Surgery | DX: E11.621 Type 2 diabetes mellitus with foot ulcer (principal); L97.522 Non-pressure chronic ulcer of other part of left foot with fat layer exposed; E11.42 Type 2 diabetes mellitus with diabetic polyneuropathy; H54.8 Legal blindness, as defined in USA; I10 Essential (primary) hypertension | CPT/HCPCS: 11042 ==

== ENCOUNTER 2019-06-26 10:10 | Outpatient (CLI) | payer MEDICARE, BC | END 2019-06-26 23:59 | disposition home or self-care (01) | LOC: WOU 10:10 | PROVIDERS: ATTEND Podiatrist Foot & Ankle Surgery | DX: E11.621 Type 2 diabetes mellitus with foot ulcer (principal); L97.522 Non-pressure chronic ulcer of other part of left foot with fat layer exposed; E11.42 Type 2 diabetes mellitus with diabetic polyneuropathy; H54.8 Legal blindness, as defined in USA | CPT/HCPCS: 11042 ==

== ENCOUNTER 2019-07-03 10:20 | Outpatient (CLI) | payer MEDICARE, BC | END 2019-07-03 23:59 | disposition home health service (06) | LOC: WOU 10:20 | PROVIDERS: ATTEND Podiatrist Foot & Ankle Surgery | DX: E11.621 Type 2 diabetes mellitus with foot ulcer (principal); L97.522 Non-pressure chronic ulcer of other part of left foot with fat layer exposed; E11.69 Type 2 diabetes mellitus with other specified complication; M86.9 Osteomyelitis, unspecified; E11.42 Type 2 diabetes mellitus with diabetic polyneuropathy; H54.8 Legal blindness, as defined in USA | CPT/HCPCS: 11042 ==

== ENCOUNTER 2019-07-10 10:20 | Outpatient (CLI) | payer MEDICARE, BC | END 2019-07-10 23:59 | disposition home or self-care (01) | LOC: WOU 10:20 | PROVIDERS: ATTEND Podiatrist Foot & Ankle Surgery | DX: E11.621 Type 2 diabetes mellitus with foot ulcer (principal); L97.522 Non-pressure chronic ulcer of other part of left foot with fat layer exposed; E11.42 Type 2 diabetes mellitus with diabetic polyneuropathy; H54.8 Legal blindness, as defined in USA | CPT/HCPCS: 11042 ==

== ENCOUNTER 2019-07-20 09:10 | Outpatient (CLI) | payer MEDICARE, BC | END 2019-07-20 23:59 | disposition home health service (06) | LOC: WOU 09:10 | PROVIDERS: ATTEND Podiatrist Foot & Ankle Surgery | DX: E11.621 Type 2 diabetes mellitus with foot ulcer (principal); L97.522 Non-pressure chronic ulcer of other part of left foot with fat layer exposed; E11.42 Type 2 diabetes mellitus with diabetic polyneuropathy; H54.8 Legal blindness, as defined in USA; I10 Essential (primary) hypertension | CPT/HCPCS: 11042 ==

== ENCOUNTER 2019-07-24 10:30 | Outpatient (CLI) | payer MEDICARE, BC | END 2019-07-24 23:59 | disposition home health service (06) | LOC: WOU 10:30 | PROVIDERS: ATTEND Podiatrist Foot & Ankle Surgery | DX: E11.621 Type 2 diabetes mellitus with foot ulcer (principal); L97.522 Non-pressure chronic ulcer of other part of left foot with fat layer exposed; E11.42 Type 2 diabetes mellitus with diabetic polyneuropathy; E11.69 Type 2 diabetes mellitus with other specified complication; M86.8X7 Other osteomyelitis, ankle and foot; H54.8 Legal blindness, as defined in USA | CPT/HCPCS: 11042 ==

== ENCOUNTER 2019-07-27 09:33 | Outpatient (CLI) | payer MEDICARE, BC | END 2019-07-27 23:59 | disposition home or self-care (01) | LOC: MRI 09:33 | PROVIDERS: ATTEND Podiatrist Foot & Ankle Surgery | DX: M86.8X7 Other osteomyelitis, ankle and foot (principal); M19.072 Primary osteoarthritis, left ankle and foot; I10 Essential (primary) hypertension; E11.9 Type 2 diabetes mellitus without complications | CPT/HCPCS: 73718-TC ==

== ENCOUNTER 2019-07-31 10:32 | Outpatient (CLI) | payer MEDICARE, BC | END 2019-07-31 23:59 | disposition home or self-care (01) | LOC: WOU 10:32 | PROVIDERS: ATTEND Podiatrist Foot & Ankle Surgery | DX: E11.621 Type 2 diabetes mellitus with foot ulcer (principal); L97.522 Non-pressure chronic ulcer of other part of left foot with fat layer exposed; E11.42 Type 2 diabetes mellitus with diabetic polyneuropathy; E11.69 Type 2 diabetes mellitus with other specified complication; M86.672 Other chronic osteomyelitis, left ankle and foot; Z79.4 Long term (current) use of insulin; H54.8 Legal blindness, as defined in USA | CPT/HCPCS: 11042 ==

== ENCOUNTER 2019-08-07 10:30 | Outpatient (CLI) | payer MEDICARE, BC | END 2019-08-07 23:59 | disposition home health service (06) | LOC: WOU 10:30 | PROVIDERS: ATTEND Podiatrist Foot & Ankle Surgery | DX: E11.42 Type 2 diabetes mellitus with diabetic polyneuropathy (principal); Z79.4 Long term (current) use of insulin; L84 Corns and callosities; H54.8 Legal blindness, as defined in USA | CPT/HCPCS: G0463 ==

== ENCOUNTER 2019-08-14 10:45 | Outpatient (CLI) | payer MEDICARE, BC | END 2019-08-14 23:59 | disposition home or self-care (01) | LOC: WOU 10:45 | PROVIDERS: ATTEND Podiatrist Foot & Ankle Surgery | DX: E11.42 Type 2 diabetes mellitus with diabetic polyneuropathy (principal); E11.69 Type 2 diabetes mellitus with other specified complication; M86.672 Other chronic osteomyelitis, left ankle and foot; Z79.4 Long term (current) use of insulin; L84 Corns and callosities; H54.8 Legal blindness, as defined in USA; I10 Essential (primary) hypertension | CPT/HCPCS: G0463 ==

== ENCOUNTER 2019-10-09 10:15 | Outpatient (CLI) | payer MEDICARE, BC | END 2019-10-09 23:59 | disposition home or self-care (01) | LOC: WOU 10:15 | PROVIDERS: ATTEND Podiatrist Foot & Ankle Surgery | DX: B35.1 Tinea unguium (principal); L84 Corns and callosities; M79.671 Pain in right foot; M79.672 Pain in left foot; E11.9 Type 2 diabetes mellitus without complications; I10 Essential (primary) hypertension; Z79.4 Long term (current) use of insulin | CPT/HCPCS: G0463 ==